=== PATIENT | female | born 1955 | race American Indian/Alaskan Native ===

== ENCOUNTER 2018-09-20 08:46 | Outpatient (CLI) | payer BC ==
--- NOTE | 2018-09-20 09:38 | Mammography Report ---
Right mammogram post biopsy: Compared to mammogram and ultrasound dated 08/31/18. Also compared to ultrasound dated 09/13/18. Findings: Post Biopsy clip is noted at 6:00 position at the site of previous asymmetry on right mammogram and hypoechoic area on sonogram . Appears concordant. No microcalcification is seen. No distinct mass is identified in the region. Impression: 6 month followup with right mammogram recommended. BI-RADS CATEGORY: 3 = Probably benign ACR BI-RADS MAMMOGRAPHIC CODES: 0 = Needs additional imaging evaluation; 1 = Negative; 2 = Benign; 3 = Probably benign; 4 = Suspicious; 5 = Malignant; 6 = Known biopsy-proven malignancy COMMENT: 1. Dense breast tissue, i.e., adenosis, fibrocystic changes, etc., may obscure an underlying neoplasm. 2. Approximately 10% of cancers are not detected with mammography. 3. A negative mammography report should not delay biopsy if a clinically suspicious mass is present.
== END 2018-09-20 08:47 | disposition home or self-care (01) ==
LOC: SPVWC 08:46
PROVIDERS: ATTEND Surgery
DX: R92.8 Other abnormal and inconclusive findings on diagnostic imaging of breast (principal)

== ENCOUNTER 2018-09-20 11:24 | Outpatient (CLI) | payer BC | END 2018-09-20 11:25 | disposition home or self-care (01) | LOC: LABHHL 11:24 | PROVIDERS: ATTEND Surgery | DX: D05.11 Intraductal carcinoma in situ of right breast (principal) | CPT/HCPCS: 88305; 88341; 88342 ==

== ENCOUNTER 2018-10-17 10:10 | Outpatient (CLI) | payer BC ==
--- NOTE | 2018-10-18 15:56 | Magnetic Resonance Report ---
FINAL REPORT Bilateral Breast MRI with and without contrast Bilateral MRI CAD History: Breast cancer Technique: Axial T1, axial and sagittal T2 fat sat, axial dynamic imaging before and after 17 cc Mult iHance administration. Subtraction and MIP images were obtained. This examination was utilized with C AD. Comparison examinations: 09/20/2018 mammogram and ultrasound biopsy images Breast composition: Heterogeneously dense. Background parenchymal enhancement: Mild. Findings: Right breast: A microclip is identified at the anterior aspect of a mass in the right 6 o'clock breas t starting at approximately 4 cm posterior to the nipple. 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 On the MRI, a washout enhancing 1.8 cm mass is identified. Segmental non mass like enhancement extends posteriorly consistent with th e associated ductal carcinoma in situ. Total extent of suspicious enhancement is 5.0 x 2.3 x 2.0 cm ( AP, craniocaudal and transverse dimensions). Additionally, in the right 9 o'clock breast located 4 cm from the nipple, a 5 mm intramammary lymph node is identified which does not contain a visible hilum and is indeterminate in nature. The skin, nipple and pectoralis appear normal. No visibly suspicious right axillary lymph nodes are identified. Left breast: The left breast is free of suspicious enhancement. The left axilla is unremarkable. Impression: Known biopsy-proven malignancy (BI-RADS 6) Recommendation: Management for biopsy-proven invasive ductal carcinoma with ductal carcinoma in situ with extent of enhancement measuring 5 cm in the AP dimension. Associated indeterminate right intrama mmary lymph node in the 9 o'clock position.
== END 2018-10-17 10:11 | disposition home or self-care (01) ==
LOC: SPVIMAG 10:10
PROVIDERS: ATTEND Surgery
DX: C50.511 Malignant neoplasm of lower-outer quadrant of right female breast (principal)
CPT/HCPCS: A9577; C8908; 77049

== ENCOUNTER 2018-10-24 11:23 | Outpatient (CLI) | payer BC, MEDICARE ==
--- NOTE | 2018-10-24 12:46 | Ultrasound Report ---
TARGETED RIGHT BREAST ULTRASOUND: 10/24/18 11:23:00 CLINICAL: Recently diagnosed right breast cancer and a suspicious intramammary lymph node at 9 o'clock on recent MRI. COMPARISON: MRI breast 10/17/18 FINDINGS: Ultrasound of the outer right breast demonstrated an intramammary lymph node at 10 o'clock 8 cm from the nipple measuring 4 x 3 x 3 mm. It has benign morphology with a small fatty hilum and correlates with the lymph node described to be at 9 o'clock 4 cm from the nipple on MRI. My measurement of the lymph node on MRI is 3.8 x 2.9 x 2.9 mm. In addition, a benign cyst at 9 o'clock 3 cm from the nipple measures 5 x 4 x 4 millimeters. IMPRESSION: A benign intramammary lymph node at 10 o'clock 8 cm from the nipple. No suspicious finding. BI-RADS 6 -- Known Cancer
== END 2018-10-24 11:24 | disposition home or self-care (01) ==
LOC: SPVWC 11:23
PROVIDERS: ATTEND Surgery
DX: D36.0 Benign neoplasm of lymph nodes (principal)

== ENCOUNTER 2018-11-23 05:44 | Day surgery (SDC) | payer BC, MEDICARE ==
[~2018-11-23 05:44] MED LIST: ANCEF/STERILE WATER 2 GM/20 ML 2 GM/20 ML SYRINGE IV NR; WATER FOR IRRIG STERILE IR ONE
[2018-11-23] MEDS ORDERED: ANCEF/STERILE WATER 2 GM/20 ML IV NR (07:00)
[2018-11-23] MEDS ORDERED: LACTATED RINGERS 1,000 ML ONE (07:16)
--- NOTE | 2018-11-23 07:26 | Anesthesia Consultation ---
Anesthesia Consult and Med Hx Date of service: 11/23/18 - Airway Anesthetic Teeth Evaluation: Good ROM Head & Neck: Adequate Mental/Hyoid Distance: Adequate Mallampati Class: Class II Intubation Access Assessment: Good - Pulmonary Exam CTA: Yes - Cardiac Exam Cardiac Exam: RRR - Pre-Operative Health Status ASA Pre-Surgery Classification: ASA3 Proposed Anesthetic Plan: General Nerve Block: pec 1&2 - Cardiovascular System Hx Hypertension: Yes (2010) Hx Heart Murmur: Yes - Central Nervous System Hx Psychiatric Problems: No - Other Systems Hx Alcohol Use: Yes () Hx Substance Use: No Hx Cancer: Yes
[2018-11-23] MEDS ORDERED: DEMEROL IV PRN (07:27)
[2018-11-23] MEDS ORDERED: NARCAN 0.4 MG/1 ML IV PRN (07:27)
[2018-11-23] MEDS ORDERED: DILAUDID IV PRN (07:27)
[2018-11-23] MEDS ORDERED: ZOFRAN IV PRN (07:27)
[2018-11-23] MEDS ORDERED: SUBLIMAZE IV PRN (07:27)
--- NOTE | 2018-11-23 07:27 | Anesthesia Day of Surgery ---
Anesthesia Day of Surgery - Day of Surgery Patient Examined: Yes Patient H&P Reviewed: Yes Patient is NPO: Yes Beta Blockers: Yes Cardiac Clearance: No Pulmonary Clearance: No
[2018-11-23] MEDS ORDERED: NACL P/F VIAL (10 ML) 0 ML ONE (07:36)
[2018-11-23] MEDS ORDERED: XYLOCAINE 1% 20 mL ONE (07:36)
[2018-11-23] MEDS ORDERED: METHYLENE BLUE ONE (07:36)
[2018-11-23] MEDS ORDERED: MARCAINE 0.25% INFILTRATI ONE (07:37)
[2018-11-23] MEDS ORDERED: XYLOCAINE 1% 20 mL INFILTRATI NR (07:37)
[2018-11-23] MEDS ORDERED: ZOFRAN ONE (07:39)
[2018-11-23] MEDS ORDERED: DECADRON ONE (07:39)
[2018-11-23] MEDS ORDERED: DIPRIVAN 10 MG/ML IV ONE (07:39)
[2018-11-23] MEDS ORDERED: SUBLIMAZE ONE (07:39)
[2018-11-23] MEDS ORDERED: MARCAINE 0.5% INFILTRATI NR (08:00)
[2018-11-23] MEDS ORDERED: TYLENOL PO NR (08:00)
[2018-11-23] MEDS ORDERED: VERSED IV NR (08:00)
[2018-11-23] MEDS ORDERED: LACTATED RINGERS 1,000 ML IV SCH (08:00)
[2018-11-23] MEDS ORDERED: SUBLIMAZE IV NR (08:00)
--- NOTE | 2018-11-23 08:46 | Mammography Report ---
NEEDLE LOCALIZATION AND HOOKWIRE PLACEMENT [id number] BREAST:11/23/18 CLINICAL: Right breast cancer at 2 sites. COMPARISON: 11/14/18 mammogram. FINDINGS: Using mammographic guidance, 1% lidocaine local anesthesia and sterile technique, two 7.5 cm Bailey needles with hookwires were placed from a medial approach to localize two biopsy clips. The hookwires were deployed and the needles were removed. Satisfactory placement was confirmed by orthogonal views. The patient tolerated the procedure well and there were no apparent complications. IMPRESSION: Uncomplicated hookwire placement at two sitesright breast.
--- NOTE | 2018-11-23 08:46 | Mammography Report ---
NEEDLE LOCALIZATION AND HOOKWIRE PLACEMENT [id number] BREAST:11/23/18 CLINICAL: Right breast cancer at 2 sites. COMPARISON: 11/14/18 mammogram. FINDINGS: Using mammographic guidance, 1% lidocaine local anesthesia and sterile technique, two 7.5 cm Bailey needles with hookwires were placed from a medial approach to localize two biopsy clips. The hookwires were deployed and the needles were removed. Satisfactory placement was confirmed by orthogonal views. The patient tolerated the procedure well and there were no apparent complications. IMPRESSION: Uncomplicated hookwire placement at two sitesright breast.
[2018-11-23] MEDS ORDERED: MARCAINE 0.5% INFILTRATI ONE (08:54)
[2018-11-23] MEDS ORDERED: WATER FOR IRRIG STERILE IR ONE (10:32)
--- NOTE | 2018-11-23 12:28 | Mammography Report ---
SPECIMEN RADIOGRAPH RIGHT BREAST: 11/23/18 CLINICAL: Surgical excision of known cancers. FINDINGS: Two targeted lesions with localizer clips and 2 hookwires are identified within the specimen. IMPRESSION: Excision of the targeted lesions.
--- NOTE | 2018-11-23 12:32 | Operative Report ---
Operative Report Operative Report: Operative Report: August 24, 2018 Preoperative diagnosis: Right breast cancer of the lower outer/inner quadrant Postoperative diagnosis: Same Procedure: Right needle localization partial mastectomy of the lower outer/inner quadrant and SLNB Surgeon: Moon Valdes MD Anesthesia: General Findings: Right wires and clips present within radiograph specimen; x 2 SLN Complications: None EBL: Minimal Disposition: PACU in good condition Indications for operative procedure: This is a 63 year old lady with newly diagnosed right breast cancer of the lower outer/inner quadrant, Stage I [id number] AL/Her-2 positive (DCIS lower inner quadrant, right breast mass 6:00 position 3-4 cm from the nipple). Recommendations are to proceed with breast conservation. Radiology bracketed both areas of cancer of IDCA breast cancer mass and DCIS. She understands the role of adjuvant radiation therapy and adjuvant chemotherapy. She wished to proceed with the above procedure. Procedure in detail: The patient was taken to radiology for wire placement for localization known area of cancer. Anesthesia placed right pectoral block. Patient was then taken to the operating room. Gen. anesthesia was administered. The right nipple was injected with radioisotope. Right breast and axilla were prepped and draped in the normal sterile operative fashion. The wire was identified. Timeout was performed. Gamma probe was inserted into the axilla. The area of hot spot was identified. A right axillary incision was made with a 15 blade knife with dissection taken down to the subcutaneous tissues. The axillary fascia was opened with the Bovie cautery. 2 SLNs were identified. All remaining counts were less than 10% of the highest count. Lymph node was sent to pathology for permanent processing. Hemostasis was obtained in the right axillary cavity. Axillary cavity was appropriately irrigated and suctioned. Hemostasis was noted. Axillary fascia was approximated and closed using interrupted 3-0 Vicryl and the skin brought together and closed using a running 4-0 Monocryl followed by skin a ffix. Attention was then taken towards the right breast. Ultrasound used to piyush the area of concern at the 6:00 positon 3-4 cm from the nipple breast cancer mass. A lower inner quadrant breast incision was made with a 15 blade knife and dissection taken down to subcutaneous tissues. First began raising of the inferior flap with removal of the wires from the skin with dissection take down to the pectoralis muscle, followed by raising of the superior flap, medial flap and lateral flap with all flaps taken down to the pectoralis muscle. The breast area of concern was appropriately removed posteriorly from the pectoralis muscle with the aid of the Bovie cautery. The wires were not encountered. Specimen was marked and then sent to pathology and radiology; radiograph specimen with wires and clips present. Breast cavity was irrigated and hemostasis was obtained. The posterior deep breast tissues were mobilized and then approximated and closed using interrupted 3-0 Vicryl. The subcutaneous tissues were approximated and closed using interrupted 3-0 Vicryl followed by closing of the skin with a running 4-0 Monocryl and skin affix. The patient tolerated surgery very well and she was awaken from anesthesia without any complication and transported to PACU in good condition.
--- NOTE | 2018-11-23 12:35 | Short Stay Summary ---
Short Stay Documentation Date of service: 11/23/18 - History H&P: obtained from office - Allergies and Medications Current Medications: Allergies No Known Allergies Allergy (Verified 11/11/18 10:16) Home Medications Medication Instructions Recorded Confirmed Last Taken Type Aspirin [Aspirin BABY CHEW TAB] 81 mg PO QDAY 11/11/18 11/23/18 11/09/18 History Carvedilol 25 mg PO BID 11/11/18 11/11/18 11/23/18 04:25 History Lisinopril/Hydrochlorothiazide 1 each PO DAILY 11/11/18 11/11/18 11/23/18 04:25 History [Zestoretic 10-12.5 mg Tablet] Potassium Chloride [K-Dur] 20 meq PO QDAY 11/11/18 11/11/18 11/22/18 History Simvastatin 40 mg PO QHS 11/11/18 11/11/18 11/22/18 History cloNIDine [Catapres] 0.2 mg PO QDAY 11/11/18 11/11/18 11/22/18 History glyBURIDE [Glyburide] 5 mg PO BID 11/11/18 11/11/18 11/22/18 History metFORMIN [Glucophage] 500 mg PO BID 11/11/18 11/11/18 11/22/18 History HYDROcodone/APAP 5-325 [[place] 1 each PO Q6HR PRN #30 tablet 11/23/18 Unknown Rx 5/325] Active Medications Acetaminophen (Tylenol) 650 mg PO PREOP NR Stop: 11/23/18 16:00 Last Admin: 11/23/18 08:43 Dose: 650 mg Documented by: Fentanyl (Sublimaze) 50 mcg IV Q5MIN PRN PRN Reason: Pain , Severe (7-10) Stop: 11/23/18 20:00 Hydromorphone HCl (Dilaudid) 0.25 mg IV Q10MIN PRN PRN Reason: Pain, Moderate (4-6) Stop: 11/23/18 20:00 Lactated Ringer's (Lactated Ringers) 1,000 mls @ 42 mls/hr IV DIRECT SAIRA Last Admin: 11/23/18 08:45 Dose: 42 mls/hr Documented by: Meperidine HCl (Demerol) 25 mg IV ONCE PRN PRN Reason: Shivering Stop: 11/23/18 16:00 Midazolam HCl (Versed) 2 mg IV PREOP NR Stop: 11/23/18 23:59 Last Admin: 11/23/18 08:58 Dose: 1 mg Documented by: Naloxone HCl (Narcan 0.4 Mg/1 Ml) 0.1 mg IV Q2MIN PRN PRN Reason: Res Rate </= 8 or 02 SAT < 92% - Brief post op/procedure progress note Date of procedure: 11/23/18 Pre-op diagnosis: Right breast cancer of the lower inner/outer quadrant Post-op diagnosis: same Procedure: Right needle localization partial mastectomy with SLNB Anesthesia: GETA Findings: 2 SLNs; right partial mastectomy with radiograph specimen present Surgeon: NASIR SHAW Estimated blood loss: minimal Pathology: list (right partial mastectomy; x2 SLNs) Specimen disposition: to lab Condition: stable - Disposition Condition at discharge: Good Disposition: DC-01 TO HOME OR SELFCARE Short Stay Discharge Plan Activity: other (no heavy lifting) Diet: regular Wound: keep clean and dry (may shower in 48 hours) Follow up with: DARWIN RILEY MD [Primary Care Provider] - 7 Days NASIR SHAW MD [Staff Physician] - 7 Days Prescriptions: HYDROcodone/APAP 5-325 [[place] 5/325] 1 each PO Q6HR PRN #30 tablet PRN Reason: Pain
[2018-11-23] MEDS ORDERED: NORCO 5/325 PO PRN (13:19)
[2018-11-23 13:21] VITALS: BP 146/77
== END 2018-11-23 14:15 | disposition home or self-care (01) ==
LOC: OR 05:44
PROVIDERS: ATTEND Surgery
DX: C50.311 Malignant neoplasm of lower-inner quadrant of right female breast (principal); C50.511 Malignant neoplasm of lower-outer quadrant of right female breast; E78.00 Pure hypercholesterolemia, unspecified; I10 Essential (primary) hypertension; Z72.89 Other problems related to lifestyle; Z79.899 Other long term (current) drug therapy; Z79.82 Long term (current) use of aspirin; Z79.84 Long term (current) use of oral hypoglycemic drugs; Z98.890 Other specified postprocedural states; Z86.2 Personal history of diseases of the blood and blood-forming organs and certain disorders involving the immune mechanism
CPT/HCPCS: 19281; 19282; 19301; 38525; 38792; 64450; 76098; 78800; 82962; 88305; 88307; 88342; A9541; J0690; J1100; J2250; J2405; J2704; J3010; J7120; 88304; 88333; Q9968

== ENCOUNTER 2018-12-27 10:28 | Day surgery (SDC) | payer BC, MEDICARE ==
[~2018-12-27 10:28] MED LIST changes: -ANCEF/STERILE WATER 2 GM/20 ML 2 GM/20 ML SYRINGE IV NR; +ANCEF/STERILE WATER 2 GM/20 ML 2 GM/20 ML SYRINGE IV SCH; -WATER FOR IRRIG STERILE IR ONE
[2018-12-27] MEDS ORDERED: XYLOCAINE MPF 2% ONE (11:28)
[2018-12-27] MEDS ORDERED: DIPRIVAN 10 MG/ML IV ONE (11:29)
[2018-12-27] MEDS ORDERED: SUBLIMAZE ONE (11:29)
[2018-12-27] MEDS ORDERED: LACTATED RINGERS 1,000 ML IV SCH (12:00)
[2018-12-27] MEDS ORDERED: VERSED IV NR (12:00)
[2018-12-27] MEDS ORDERED: XYLOCAINE 1% 20 mL ONE (12:03)
[2018-12-27] MEDS ORDERED: MARCAINE 0.25% INFILTRATI ONE ×3 (12:03→12:09)
[2018-12-27] MEDS ORDERED: HEPARIN 10,000 UNITS/10 ML ONE (12:07)
[2018-12-27] MEDS ORDERED: NACL 0.9% 100 ML ONE (12:08)
[2018-12-27] MEDS ORDERED: XYLOCAINE 1% 20 mL INFILTRATI ONE ×2 (12:09)
[2018-12-27] MEDS ORDERED: NEO SYNEPHRINE/NS Syringe(OR USE) IV ONE (12:14)
[2018-12-27] MEDS ORDERED: HEPARIN 10,000 UNITS/10 ML IR ONE (12:24)
[2018-12-27] MEDS ORDERED: NACL 0.9% IV ONE (12:24)
[2018-12-27] MEDS ORDERED: HEPARIN 10,000 UNITS/10 ML IV ONE (12:29)
--- NOTE | 2018-12-27 12:45 | Short Stay Summary ---
Short Stay Documentation Date of service: 12/27/18 - History Principal diagnosis: right breast cancer H&P: obtained from office - Allergies and Medications Current Medications: Allergies No Known Allergies Allergy (Verified 12/26/18 12:00) Home Medications Medication Instructions Recorded Confirmed Last Taken Type Aspirin [Aspirin BABY CHEW TAB] 81 mg PO QDAY 11/11/18 12/26/18 11/09/18 History Carvedilol 25 mg PO BID 11/11/18 12/27/18 12/27/18 08:00 History Lisinopril/Hydrochlorothiazide 1 each PO DAILY 11/11/18 12/27/18 12/26/18 History [Zestoretic 10-12.5 mg Tablet] Potassium Chloride [K-Dur] 20 meq PO QDAY 11/11/18 12/27/18 12/26/18 History Simvastatin 40 mg PO QHS 11/11/18 12/27/18 12/26/18 History cloNIDine [Catapres] 0.2 mg PO QDAY 11/11/18 12/27/18 12/26/18 History glyBURIDE [Glyburide] 5 mg PO BID 11/11/18 12/27/18 12/26/18 History metFORMIN [Glucophage] 500 mg PO BID 11/11/18 12/27/18 12/26/18 History HYDROcodone/APAP 5-325 [[place] 1 each PO Q6HR PRN #30 tablet 11/23/18 12/27/18 Unknown Rx 5/325] Active Medications Cefazolin Sodium (Ancef/Sterile Water 2 Gm/20 Ml) 2 gm in 20 mls @ 40 mls/hr IV PREOP SAIRA; Protocol Stop: 12/27/18 23:00 Lactated Ringer's (Lactated Ringers) 1,000 mls @ 75 mls/hr IV DIRECT SAIRA Last Admin: 12/27/18 11:39 Dose: 75 mls/hr Documented by: Midazolam HCl (Versed) 2 mg IV PREOP NR Stop: 12/27/18 23:59 Last Admin: 12/27/18 11:39 Dose: 2 mg Documented by: - Brief post op/procedure progress note Date of procedure: 12/27/18 Pre-op diagnosis: right breast cancer Post-op diagnosis: same Procedure: placement of left subclavian port a cath with ultrasound guidance, fluoroscopy Anesthesia: GETA, local Findings: good placement of port without PTX on post op CXR Surgeon: WOODY TADEO Estimated blood loss: minimal Pathology: none Condition: stable - Hospital course Hospital course: Pt observed in PACU and discharged to home in stable condition - Disposition Condition at discharge: Good Disposition: DC-01 TO HOME OR SELFCARE Short Stay Discharge Plan Activity: no restrictions Diet: regular Wound: open to air Additional Instructions: SEE PRINTED DISCHARGE INSTRUCTIONS Follow up with: DARWIN RILEY MD [Primary Care Provider] - 7 Days WOODY TADEO DO [Staff Physician] - 14 Days
--- NOTE | 2018-12-27 12:54 | Fluoroscopy Report ---
Single view chest: History: Breast cancer, insertion of [id number]-u-Uipt. Findings: Normal cardiomediastinal silhouette. Trachea is midline. Tip of [id number] in the right atrium. No consolidation pneumothorax or pleural effusion. Impression: Tip of Lgskcu-s-Tirc in right atrium.
[2018-12-27 13:55] VITALS: BP 147/72
--- NOTE | 2018-12-27 14:45 | Anesthesia Day of Surgery ---
Anesthesia Day of Surgery - Day of Surgery Patient Examined: Yes Patient H&P Reviewed: Yes Patient is NPO: Yes
--- NOTE | 2018-12-27 14:45 | Post Anesthesia Evaluation ---
- Post Anesthesia Evaluation Patient Participated: Yes Airway Patent: Yes Stable Respiratory Function: Yes Nausea/Vomiting: No Temp > 96.8F: Yes Pain Manageable: Yes Adequeate Hydration: Yes Anesthesia Complications: No
--- NOTE | 2018-12-27 14:45 | Anesthesia Consultation ---
Anesthesia Consult and Med Hx Date of service: 12/27/18 - Airway Anesthetic Teeth Evaluation: Good ROM Head & Neck: Adequate Mental/Hyoid Distance: Adequate Mallampati Class: Class III Intubation Access Assessment: Possibly Difficult - Pulmonary Exam CTA: Yes - Cardiac Exam Cardiac Exam: RRR - Pre-Operative Health Status ASA Pre-Surgery Classification: ASA3 Proposed Anesthetic Plan: General - Pulmonary Hx Smoking: No - Cardiovascular System Hx Hypertension: Yes (2010) Hx Heart Attack/AMI: No Hx Heart Murmur: Yes - Central Nervous System CVA: No Hx Psychiatric Problems: No - Gastrointestinal Hx Gastroesophageal Reflux Disease: No - Endocrine Hx Renal Disease: No Hx Non-Insulin Dependent Diabetes: Yes - Other Systems Hx Alcohol Use: Yes Hx Substance Use: No Hx Cancer: Yes
--- NOTE | 2018-12-27 15:13 | Operative Report ---
PREOPERATIVE DIAGNOSIS: Right breast cancer. POSTOPERATIVE DIAGNOSIS: Right breast cancer. PROCEDURE: Placement of left subclavian Port-A-Cath with ultrasound guidance, fluoroscopy. ANESTHESIA: General endotracheal anesthesia, local. FINDINGS: Good placement of port without pneumothorax on postop chest x-ray. SURGEON: Tanisha Borja DO ESTIMATED BLOOD LOSS: Minimal. PATHOLOGY: None. CONDITION DISPOSITION: Stable to PACU. HISTORY OF PRESENT ILLNESS AND INDICATION: The patient is a 63-year-old female, who was recently diagnosed with right-sided breast cancer. She is a candidate for chemotherapy and sees Dr. Delacruz as an outpatient. She is scheduled to start chemotherapy on 12/28/2018. She is a candidate for a Port-A-Cath placement. All risks, benefits and alternatives to surgery were discussed with the patient. All questions were answered and consent obtained. PROCEDURE IN DETAIL: The patient was identified in the preoperative area, taken back to the operating room, placed on the operating table in supine position. After anesthesia was induced, the bilateral arms were tucked and all bony prominences padded. A shoulder roll was placed across the upper shoulders. Both chest and upper neck and chin were prepped and draped in usual sterile fashion. A timeout was performed. Using ultrasound guidance, the left subclavian vein was identified and marked. The local anesthetic was infiltrated into the skin at all intended incision sites. The left subclavian vein was then accessed on the first stick. There was return of dark red nonpulsatile blood. Wire was threaded without resistance and the position and confirmed using fluoroscopy. The needle was then removed and the wire secured to the drapes using a hemostat. A 4 cm transverse incision was made in the left upper chest with a 15-blade. Dissection was carried down through the skin and subcutaneous tissue using electrocautery until the prepectoral fascia was encountered. A subcutaneous pocket was then made for the port using combination of blunt dissection and electrocautery. Hemostasis was achieved along the way. Once the pocket was adequate, the catheter was tunneled from the pocket to the wire. The dilator breakaway catheter sheath was then inserted over the wire under direct fluoroscopic guidance and advanced. The wire and dilator were removed and the catheter was threaded through the break-away sheath and the break-away sheath removed. The catheter laid flush under the skin and using fluoroscopic guidance was pulled back until the tip was seen in the right atrium. The port was then assembled in the usual fashion and tested with heparinized saline. There was return of dark red blood and the port flushed easily. The pocket was then irrigated and once again checked for hemostasis, which was carefully ensured. The port was secured to the prepectoral fascia in two locations using 2-0 Vicryl interrupted sutures. The port was then instilled with 3000 units of heparin. The course of the catheter was examined on fluoroscopy and there were no kinks identified. The incision was then closed. The deep dermal layer was closed with interrupted 3-0 Vicryl sutures. The skin incisions were closed with 4-0 Monocryl subcuticular stitches and skin glue. At the end of the case, all sponge, instrument, sharp counts were correct x 2. A postoperative x-ray performed in the operating room showed good placement of the port without pneumothorax. The patient was awoken from anesthesia and taken to PACU in stable condition. [facility]# [id number] CHELY/ALEXUS GORDILLO
== END 2018-12-27 16:07 | disposition home or self-care (01) ==
LOC: OR 10:28
PROVIDERS: ATTEND Surgery
DX: C50.911 Malignant neoplasm of unspecified site of right female breast (principal); E78.00 Pure hypercholesterolemia, unspecified; I10 Essential (primary) hypertension; E11.9 Type 2 diabetes mellitus without complications; Z90.11 Acquired absence of right breast and nipple; Z72.89 Other problems related to lifestyle; Z98.890 Other specified postprocedural states; Z85.89 Personal history of malignant neoplasm of other organs and systems; Z79.899 Other long term (current) drug therapy; Z79.84 Long term (current) use of oral hypoglycemic drugs; Z79.82 Long term (current) use of aspirin; Z86.2 Personal history of diseases of the blood and blood-forming organs and certain disorders involving the immune mechanism
CPT/HCPCS: 36561; 77001; 82962; C1788; J0690; J1644; J2250; J2370; J2704; J3010; J7120

== ENCOUNTER 2019-10-20 09:21 | Outpatient (CLI) | payer BC | END 2019-10-20 09:22 | disposition home or self-care (01) | LOC: SPVWC 09:21 | PROVIDERS: ATTEND Surgery | DX: Z12.31 Encounter for screening mammogram for malignant neoplasm of breast (principal) | CPT/HCPCS: 77067 ==

== ENCOUNTER 2020-04-24 14:03 | Outpatient (CLI) | payer BC ==
--- NOTE | 2020-04-24 15:01 | Mammography Report ---
DIGITAL RIGHT DIAGNOSTIC MAMMOGRAM WITH CAD, WITHOUT TOMOSYNTHESIS 04/24/2020 INDICATION: H/O BREAST CANCER with lumpectomy on right, follow-up, no current problems TECHNIQUE: Digital right mammographic imaging was performed. This examination was interpreted with the benefit of Computer-aided Detection analysis. COMPARISON: 10/20/2019 and priors Breast Density: The breasts are heterogeneously dense, which may obscure small masses. FINDINGS: Right scar appears stable. Minimal lateral nodularity is stable. No suspicious changes are seen. IMPRESSION: Stable Follow up recommendation: Routine BI-RADS Category 2: Benign. A "normal" or negative report should not discourage follow up or biopsy of a clinically significant f inding. A written summary of these findings will be mailed to the patient. The patient will be entered into a mammography reporting system which will generate a reminder letter for the patient's next appointmen t at the appropriate interval. According to the [employer], yearly mammograms are recommended starting at age 40 and continuing as long as a woman is in good health. Breast MRI is recommended for women with an kip roximately 20-25% or greater lifetime risk of breast cancer, including women with a strong family his tory of breast or ovarian cancer and women who have been treated for Hodgkin's disease. Signer Name: Thomas Covarrubias MD Signed: 04/24/2020 2:57 PM Workstation Name: [id number]
== END 2020-04-24 14:04 | disposition home or self-care (01) ==
LOC: SPVWC 14:03
PROVIDERS: ATTEND Surgery
DX: R92.8 Other abnormal and inconclusive findings on diagnostic imaging of breast (principal)

== ENCOUNTER 2020-11-05 14:00 | Outpatient (CLI) | payer BC ==
--- NOTE | 2020-11-06 08:53 | Mammography Report ---
DIGITAL SCREENING MAMMOGRAM WITH CAD, 11/06/2020 INDICATION: Routine screening mammography. TECHNIQUE: Digital bilateral 2D mammography was obtained in the craniocaudal and mediolateral obliq ue projections. This examination was interpreted with the benefit of Computer-Aided Detection analysi s. COMPARISON: 10/20/2019 FINDINGS: Breast Density: The breasts are heterogeneously dense, which may obscure small masses. There is no evidence of dominant mass, suspicious calcifications or architectural distortion in eithe r breast. Postsurgical change right breast. IMPRESSION: Follow up recommendation: Routine yearly BI-RADS Category 2: Benign. A "normal" or negative report should not discourage follow up or biopsy of a clinically significant f inding. A written summary of these findings will be mailed to the patient. The patient will be entered into a mammography reporting system which will generate a reminder letter for the patient's next appointmen t at the appropriate interval. The [employer] recommends yearly mammograms starting at age 40 and continuing as l grazyna as a woman is in good health. Breast MRI is recommended for women with an approximate 20-25% or greater lifetime risk of breast cancer, including women with a strong family history of breast or ova mike cancer or who have been treated for Hodgkin's disease. Signer Name: Candido Recinos MD Signed: 11/06/2020 8:49 AM Workstation Name: [id number]
== END 2020-11-05 14:01 | disposition home or self-care (01) ==
LOC: SPVWC 14:00
PROVIDERS: ATTEND Surgery
DX: Z12.31 Encounter for screening mammogram for malignant neoplasm of breast (principal)
CPT/HCPCS: 77067

== ENCOUNTER 2021-06-03 08:52 | Day surgery (SDC) | payer BC, MEDICARE ==
[2021-06-03 09:59] VITALS: BP 144/78
[2021-06-03] MEDS ORDERED: BUPIVACAINE/PF (0.25%) 2.5 MG/ML 30 ML VIAL INFILTRATI ONE ×2 (10:44→11:21)
[2021-06-03] MEDS ORDERED: LIDOCAINE (1%) 10 MG/1 ML VIAL 20 ML MDV ONE (10:44)
[2021-06-03] MEDS ORDERED: LIDOCAINE 0.5%/EPINEPHRINE 1:200,000 VIAL (50 ML) MDV INFILTRATI ONE (11:22)
--- NOTE | 2021-06-03 11:33 | Procedure Note ---
Date of procedure: 06/03/21 Pre-op diagnosis: Breast cancer Post-op diagnosis: same Procedure: port removal Findings: HPI and indication: Patient is a 66-year-old female with a history of breast cancer. The patient had a port placed last year and underwent a full course of chemotherapy. She was given approval by her oncologist to have the port removed. All risk, benefits, alternatives to surgery were discussed with the patient questions answered. Consent was obtained in the office. Procedure in detail: Patient was identified in the preoperative area and taken back to the minor procedure room. She was placed on the stretcher in supine position. The left upper chest and neck were prepped and draped in usual sterile fashion and a timeout was performed. Local anesthetic was infiltrated into the skin at the intended incision site at the old left upper chest scar. An incision was made using a 15 blade. Dissection was carried down through the subcutaneous tissue using hemostat. The port was identified and the capsule dissected using hemos tat and fifteen blade. The catheter grasped between 2 hemostats. The catheter was cut. The patient was placed in Trendelenburg. The catheter was removed and pressure held at the site for several minutes. There was no bleeding seen once pressure was removed. The subcutaneous port was then dissected free from the surrounding tissue using blunt dissection with a hemostat. This was also removed from the wound and both pieces were passed off the table as a specimen for identification only. The wound was then irrigated hemostasis very carefully ensured. No bleeding was seen. The wound was then closed in layered fashion with the deep dermal layer closed with interrupted 3-0 Vicryl stitches. Local anesthetic was once again infiltrated into the skin. The skin was approximated using 4-0 Monocryl subcuticular running stitch and skin glue. Once the glue was dry a balled up 2 x 2 gauze was applied to the area of the incision and secured with a Tegaderm. At the end of the case all sponge, instrument, sharp counts were correct x2. The patient tolerated the procedure very well. She was discharged home in stable condition. Anesthesia: local Surgeon: WOODY TADEO Estimated blood loss: minimal Pathology: list (port and catheter for ID only) Specimen disposition: to lab Condition: stable Disposition: other (home)
== END 2021-06-03 08:53 | disposition home or self-care (01) ==
LOC: OR 08:52
PROVIDERS: ATTEND Surgery
DX: Z45.2 Encounter for adjustment and management of vascular access device (principal); C50.311 Malignant neoplasm of lower-inner quadrant of right female breast; C50.511 Malignant neoplasm of lower-outer quadrant of right female breast; I10 Essential (primary) hypertension; E11.9 Type 2 diabetes mellitus without complications; E78.00 Pure hypercholesterolemia, unspecified; M19.90 Unspecified osteoarthritis, unspecified site; Z79.82 Long term (current) use of aspirin; Z79.84 Long term (current) use of oral hypoglycemic drugs; Z79.899 Other long term (current) drug therapy; Z98.890 Other specified postprocedural states; Z72.89 Other problems related to lifestyle
CPT/HCPCS: 82962; 88300; 88302

== ENCOUNTER 2021-08-13 15:20 | Outpatient (CLI) | payer BC, MEDICARE ==
--- NOTE | 2021-08-13 16:09 | Mammography Report ---
DIGITAL DIAGNOSTIC MAMMOGRAM WITH CAD CONVENTIONAL, 08/13/2021 CLINICAL INFORMATION / INDICATION: Patient has a history of right breast cancer status post lumpectom y. Patient has no current complaints. ABN MAMMO / BREAST CA TECHNIQUE: Digital bilateral mammographic imaging was performed. This examination was interpreted with the benefit of Computer-aided Detection analysis. COMPARISON: Prior mammograms 11/05/2020 and 10/20/2019 FINDINGS: Breast Density: The breasts are heterogeneously dense, which may obscure small masses. No dominant mass, suspicious calcifications or architectural distortion in either breast. There is stable benign postlumpectomy change in the right breast. There has been no significant saini e compared with the prior examinations. IMPRESSION: No mammographic evidence of malignancy. Follow up recommendation: Routine yearly BI-RADS Category 2: BENIGN. A "normal" or negative report should not discourage follow up or biopsy of a clinically significant f inding. A written summary of these findings will be mailed to the patient. The patient will be entered into a mammography reporting system which will generate a reminder letter for the patient's next appointmen t at the appropriate interval. According to the [employer], yearly mammograms are recommended starting at age 40 and continuing as long as a woman is in good health. Breast MRI is recommended for women with an kip roximately 20-25% or greater lifetime risk of breast cancer, including women with a strong family his tory of breast or ovarian cancer and women who have been treated for Hodgkin's disease. Signer Name: Madai Vargas MD Signed: 08/13/2021 4:04 PM Workstation Name: [email or web address]
== END 2021-08-13 15:21 | disposition home or self-care (01) ==
LOC: SPVWC 15:20
PROVIDERS: ATTEND Internal Medicine Hematology & Oncology
DX: C50.311 Malignant neoplasm of lower-inner quadrant of right female breast (principal); N64.89 Other specified disorders of breast
CPT/HCPCS: 77066